=== PATIENT | male | born 1960 | race Caucasian/White ===

== ENCOUNTER 2017-09-10 11:33 | Emergency (ER) | payer OTHER ==
[~2017-09-10] VITALS: Ht 180.3 cm; Wt 93.0 kg
[2017-09-10] MEDS ORDERED: LIPITOR40 MG PO (11:50)
[2017-09-10] MEDS ORDERED: PACERONE 200 M200 M1 PO (11:50)
[2017-09-10] MEDS ORDERED: COREG25 MG PO (11:50)
[2017-09-10] MEDS ORDERED: ASPIR 8181 MG PO (11:51)
[2017-09-10] MEDS ORDERED: PERCOCET 10-321 EAC1 PO (11:51)
[2017-09-10 12:20] LABS: ABSOLUTE EOSINOPHILS 0.1 thou/uL (0.0-0.7); ABSOLUTE LYMPHOCYTES 1.6 thou/uL (0.8-5.3); ABSOLUTE NEUTROPHILS 7.5 thou/uL (1.6-8.1); BASOPHILS 0.4 %; EOSINOPHILS 1.2 %; HEMATOCRIT 45.6 % (42.0-52.0); HEMOGLOBIN 15.4 gm/dL (14.0-18.0); LYMPHOCYTES 15.2 %; MCH 29.8 pg (26.0-34.0); MCHC 33.8 g/dL (28.0-37.0); MCV 88.3 fL (80.0-100.0); MONOCYTES 9.6 %; MPV 7.4 fl. (7.2-11.1); NUCLEATED RBCS 0 /100WBC; PLATELET COUNT* 276 thou/uL (150-400); POLYS 73.6 %; RBC 5.17 mil/uL (4.50-6.00); RDW-CV 15.6 % (10.5-14.5); WBC 10.2 thou/uL (4.0-11.0)
[2017-09-10 12:26] LABS: ANION GAP 7 mmol/L (7-16); BUN 15 mg/dL (7-18); CALCIUM 7.8 mg/dL (8.5-10.1); CHLORIDE 103 mmol/L (98-107); CO2 27 mmol/L (21-32); GLUCOSE 103 mg/dL (70-99); SODIUM 137 mmol/L (136-145)
[2017-09-10 12:29] LABS: APTT 28.1 Seconds (25.0-31.3); INR 1.1; PROTIME 10.7 Seconds (9.20-11.50)
[2017-09-10 12:33] LABS: ALBUMIN 2.5 g/dL (3.4-5.0); ALKALINE PHOSPHATASE 76 U/L (46-116); SGOT 32 U/L (15-37); SGPT 37 U/L (30-65); TOTAL BILIRUBIN 0.6 mg/dL (<0.1-1.0); TOTAL PROTEIN 6.8 g/dL (6.4-8.2); TROPONIN-I LEVEL <0.06 ng/mL (<0.06)
[2017-09-10] MEDS ORDERED: BACTRIM DS TAB1 EACH PO (12:46)
[2017-09-10] MEDS ORDERED: KEFLEX500 M1 PO (12:46)
[2017-09-10 13:08] VITALS: BP 106/63
--- NOTE | 2017-09-11 18:40 | EKG ---
[place] [address] ELECTROCARDIOGRAM REPORT Name: ABBY WOODS Room: [facility]#: [id number] Admission: 09/10/17 Attend Phys: Discharge: 09/10/17 Date of : 60 Report #: [id number] THIS REPORT FOR: //name// [facility] ED Test Date: 2017-09-10 Test Time: 12:12:40 Pat Name: ABBY WOODS Department: Room: Gender: M [employer]: ANTONIETTA : 1960 Requested By: Yaritza Klein Order Number: [id number] MD: Alxei Sierra Measurements Intervals [place] Rate: 56 P: 40 [place]: 171 QRS: 86 QRSD: 127 T: -36 QT: 552 QTc: 533 Interpretive Statements Sinus rhythm Probable left atrial enlargement Nonspecific intraventricular conduction delay Consider inferior infarct Borderline T abnormalities, inferior leads No previous ECG available for comparison Electronically Signed On 09-11-2017 18:40:44 CDT by Alexi Sierra [email or web address] <ELECTRONICALLY SIGNED> By: Alexi Sierra MD, [facility] 09/11/17 1840 121 11 Alexi Sierra MD, FAC /EPI
== END 2017-09-10 13:10 | disposition home or self-care (01) ==
LOC: M.ERS 11:33
PROVIDERS: Nurse Practitioner Family
DX: L02.31 Cutaneous abscess of buttock (principal); L03.317 Cellulitis of buttock; F17.210 Nicotine dependence, cigarettes, uncomplicated; Z95.5 Presence of coronary angioplasty implant and graft